=== PATIENT | female | born 2000 | race Caucasian/White ===

== ENCOUNTER 2020-01-22 13:27 | Emergency (ER) | payer SELFPAY ==
[2020-01-22 13:29] VITALS: BP 124/67; PULSE 102; RESP 18; TEMP 36.7; O2SAT 99; BMI 29.0
--- NOTE | 2020-01-22 13:49 | ED.DCSUM_ITS ---
History of Present Illness Informant: Patient Onset: Days Current Severity: Moderate Narrative: 19-year-old female with no past medical history presents with complaints of sore throat x1 week. Pain worsened over the last 2 days. She has been eating and drinking less due to the pain. Denies fevers, chills, nausea, vomiting, difficulty breathing or swallowing, chest pain, cough, shortness of breath, or myalgias. No sick contacts. <Bess Aldridge - Last Filed: 01/22/20 14:58> <Cindy Le - Last Filed: 01/22/20 16:53> Chief Complaint: Sore Throat Past Medical History Past Medical History: None <Bess Aldridge - Last Filed: 01/22/20 14:58> <Cindy Le - Last Filed: 01/22/20 16:53> - Allergies and Home Meds Allergies/Adverse Reactions: Allergies No Known Allergies Allergy (Verified 01/22/20 13:31) Primary Care Physician: Care Physician,No Primary [Primary Care Provider] - Review of Systems General: Denies: Chills, Fever, Sweats Eyes: Denies: Visual changes - bilaterally, Diplopia ENT: Reports: Sore throat. Denies: Left ear pain, Right ear pain, Rhinorrhea Cardiovascular: Denies: Chest pain, Palpitations Respiratory: Denies: Dyspnea, Cough, Dyspnea on exertion Gastrointestinal: Denies: Abdominal pain, Nausea, Vomiting, Diarrhea, Melena, Hematochezia Genitourinary: Denies: Dysuria, Hematuria, Frequency Musculoskeletal: Denies: Back pain, Extremity Pain Skin: Denies: Rash, Wounds Neurological: Denies: Headache, Weakness, Numbness <Bess Aldridge - Last Filed: 01/22/20 14:58> Physical Exam Vital Signs/Narrative: Vital Signs Temp Pulse Resp BP Pulse Ox 01/22/20 13:29 98.0 F 102 H 18 124/67 H 99 Inital Vital Signs reviewed: Yes General: Well nourished, Well developed, No Acute Distress Head: Normocephalic, Atraumatic Eyes: EOMI ENT: Moist mucous membranes, - - Enlarged tonsils with pharyngeal erythema and exudates. Uvula midline with no swelling. Airway patent. Neck full ROM. Neck: Supple, Nontender Cardiovascular: Regular rate, Regular rhythm, No murmurs Respiratory: No distress, CTA bilaterally Back: Nontender, Normal Inspection Extremities: No edema Skin: Normal color, No rash, Diaphoresis Neurological: Alert, Oriented x3, Cranial nerves II-XII grossly intact, Normal Strength, Normal Sensation Psychological: Normal affect, Normal Mood <Bess Aldridge - Last Filed: 01/22/20 14:58> Vital Signs/Narrative: Vital Signs Temp Pulse Resp BP Pulse Ox 01/22/20 13:29 98.0 F 102 H 18 124/67 H 99 <Cindy Le - Last Filed: 01/22/20 16:53> Diagnostic/Tx/Re-eval Rapid strep negative. Culture pending. - Medical Decision Making Patient presented with sore throat. She appears well nontoxic. Vital signs within normal limits. Rapid strep was negative. Culture pending. Patient was she likely has viral pharyngitis and was given Decadron and advised to take anti-inflammatories. Discussed return precautions including shortness of breath, difficulty breathing or swallowing. She should follow-up with [facility] next week. She was agreeable and discharged home in stable condition. <Bess Aldridge - Last Filed: 01/22/20 14:58> - Medical Decision Making Agree with above. I independently evaluated this patient with PA. <Cindy Le - Last Filed: 01/22/20 16:53> ED Disposition <Bess Aldridge - Last Filed: 01/22/20 14:58> <Cindy Le - Last Filed: 01/22/20 16:53> - Plan for ED Patient: Disposition: Home or Assisted Living Instructions: ED Pharyngitis Viral Referrals: Care Physician,No Primary [Primary Care Provider] -
--- NOTE | 2020-01-22 14:02 | NURSING ---
ICU SEVERE SEPSIS, HYPOTENSION, UTI PAINTSIL
[2020-01-22] MEDS: dexAMETHasone 10 MG/ML Vial 4 MG PO.IVFORM (15:03)
== END 2020-01-22 15:06 | disposition home or self-care (01) ==
PROVIDERS: Emergency Provider Physician Assistant
DX: J02.9 Acute pharyngitis, unspecified (principal)
CPT/HCPCS: 87880; 99283